=== PATIENT | male | born 1980 | race Two or more races ===

== ENCOUNTER → 2017-08-03 | Emergency (ER) | payer OTHER ==
[~2017-08-03] VITALS: Ht 180.3 cm; Wt 97.5 kg
== END | disposition home or self-care (01) ==
LOC: ER 08:58
DX: R10.32 Left lower quadrant pain (principal)

== ENCOUNTER 2018-11-02 08:29 | Emergency (ER) | payer OTHER ==
[~2018-11-02] VITALS: Ht 180.3 cm; Wt 95.3 kg
== END 2018-11-02 11:02 | disposition home or self-care (01) ==
LOC: ER 08:29
DX: S93.402A Sprain of unspecified ligament of left ankle, initial encounter (principal); X50.0XXA Overexertion from strenuous movement or load, initial encounter; Y93.89 Activity, other specified; Y92.092 Bedroom in other non-institutional residence as the place of occurrence of the external cause; Y99.8 Other external cause status

== ENCOUNTER 2018-12-11 15:37 | Emergency (ER) | payer OTHER ==
[~2018-12-11] VITALS: Ht 182.9 cm; Wt 99.8 kg
== END 2018-12-11 18:56 | disposition home or self-care (01) ==
LOC: ER 15:37
DX: H66.92 Otitis media, unspecified, left ear (principal); J32.0 Chronic maxillary sinusitis

== ENCOUNTER 2021-08-26 18:42 | Emergency (ER) | payer OTHER ==
[~2021-08-26] VITALS: Ht 175.3 cm; Wt 79.8 kg
[2021-08-26] MEDS ORDERED: CLARITIN10 M1 PO (20:34)
[2021-08-26] MEDS ORDERED: ALLERGY RELIE15.8 ML NASAL (20:34)
[2021-08-26] MEDS ORDERED: CIPRO500 MG PO (20:34)
== END 2021-08-26 20:37 | disposition home or self-care (01) ==
LOC: ER 18:42
DX: J32.9 Chronic sinusitis, unspecified (principal)

== ENCOUNTER 2024-11-28 17:03 | Emergency (ER) | payer OTHER ==
[~2024-11-28] VITALS: Ht 185.4 cm; Wt 95.3 kg
[~2024-11-28 17:03] MED LIST: ALLERGY RELIE15.8 ML NASAL; CIPRO500 MG PO; CLARITIN10 M1 PO
== END 2024-11-28 22:31 | disposition home or self-care (01) ==
LOC: ER 17:54
DX: S00.93XA Contusion of unspecified part of head, initial encounter (principal); W18.39XA Other fall on same level, initial encounter; Y93.E1 Activity, personal bathing and showering; Y92.012 Bathroom of single-family (private) house as the place of occurrence of the external cause; Y99.9 Unspecified external cause status